=== PATIENT | male | born 1960 | race Caucasian/White ===

== ENCOUNTER 2020-09-01 09:05 | Emergency (ER) | payer OTHER ==
[~2020-09-01] VITALS: Ht 182.9 cm; Wt 90.5 kg
[~2020-09-01 09:05] MED LIST: DOXYCYCLINE 10100 MG PO; LORTAB 5/500 501 TAB PO; ZESTORETIC 12.51 TAB PO
[2020-09-01 09:59] LABS: BASO % 0.3 % (0.0-2.0); EOS % 0.1 % (0-4.0); GRAN # 8.4 (1.4-6.5); GRAN % 84.4 % (42.2-75.2); HEMATOCRIT 40.2 % (42.0-52.0); HEMOGLOBIN 13.8 g/dl (13.5-18.0); LYMPH # 0.5 (1.2-3.4); LYMPH % 4.8 % (20.0-51.0); MEAN CELL VOLUME 87 fl (80.0-100.0); MEAN CORPUSCULAR HEMOGLOBIN 30 pg (27.0-31.0); MEAN CORPUSCULAR HGB CONC 34 g/dl (33.0-37.0); MEAN PLATELET VOLUME 10.3 fl (7.4-10.4); MONO % 9.8 % (1.7-9.3); PLATELET COUNT 206 K/mm3 (130-400); RED BLOOD COUNT 4.61 M/mm3 (4.20-5.60); REDCELL DISTRIBUTION WIDTH-CV 12.1 % (11.5-14.5)
[2020-09-01 10:10] LABS: INR 1.3 (0.8-3.0); PROTHROMBIN TIME 15.1 SECONDS (9.7-12.8)
[2020-09-01 10:13] LABS: PARTIAL THROMBOPLASTIN TIME 30.1 SECONDS (26.0-37.0)
[2020-09-01 10:19] LABS: ALANINE AMINOTRANSFERASE 85 U/L (4-49); ALKALINE PHOSPHATASE 86 U/L (50-136); ANION GAP 10 mmol/L (7-16); AST,SGOT 80 U/L (15-37); BILIRUBIN,TOTAL 0.8 mg/dL (0.0-1.0); BLOOD UREA NITROGEN 16 mg/dL (9-20); CARBON DIOXIDE 25 mmol/L (22-30); CHLORIDE 100 mmol/L (98-107); CREATININE, serum 0.98 (0.66-1.25); GLUCOSE 126 mg/dL (74-106); LIPASE 82 U/L (23-300); POTASSIUM 3.7 mmol/L (3.4-5.0); SODIUM 135 mmol/L (137-145); TOTAL PROTEIN 7.6 gm/dL (6.4-8.2)
[2020-09-01 10:28] LABS: TROPONIN-I < 0.012 ng/mL (0.000-0.035)
[2020-09-01 11:19] LABS: C-REACTIVE PROTEIN 30.9 mg/dL (0.0-0.9)
[2020-09-01 12:05] VITALS: TEMP 98.5
[2020-09-01] MEDS ORDERED: TYLENOL 325MG325 MG PO (15:50)
[2020-09-01] MEDS ORDERED: DECADRON6 MG PO (15:57)
[2020-09-01 16:42] VITALS: BP 107/61; PULSE 68
== END 2020-09-01 16:41 | disposition home or self-care (01) ==
LOC: COL.ER 09:05
PROVIDERS: Emergency Medicine
DX: U07.1 COVID-19 (principal); J12.89 Other viral pneumonia; R41.3 Other amnesia; Z88.1 Allergy status to other antibiotic agents
CPT/HCPCS: J1100; J7050; Q9967